=== PATIENT | male | born 1990 | race African-American/Black ===

== ENCOUNTER 2017-10-27 08:34 | Inpatient (IN) | payer MEDICAID ==
[~2017-10-27] VITALS: Ht 172.7 cm; Wt 63.5 kg
[2017-10-27] MEDS ORDERED: IV NORMAL SALINE 1000 ML BAG IV ONE ×2 (09:00→10:30)
[2017-10-27] MEDS ORDERED: KETOROLAC TROMETHAMINE 15 MG INJ IV ONE (09:00)
[2017-10-27] MEDS ORDERED: METOCLOPRAMIDE HCL 10 MG/2 ML VIAL IV ONE ×2 (09:00→12:45)
--- NOTE | 2017-10-27 09:00 | NUR ---
Dr. Sutton at bedside for MSE
--- NOTE | 2017-10-27 09:18 | NUR ---
PT out of ER for CT scan
--- NOTE | 2017-10-27 09:25 | NUR ---
PT back to ER from CT scan
[2017-10-27] MEDS ORDERED: METOCLOPRAMIDE HCL 10 MG/2 ML VIAL ONE ×2 (09:29→13:18)
[2017-10-27] MEDS ORDERED: KETOROLAC TROMETHAMINE 15 MG INJ ONE (09:29)
[2017-10-27 09:58] LABS: CREATININE 1.1 mg/dL (0.6-1.3); POTASSIUM 2.9 mmol/L (3.5-5.1)
[2017-10-27 10:04] LABS: BILIRUBIN,DIRECT 0.2 mg/dL (0.0-0.2); BILIRUBIN,TOTAL 0.9 mg/dL (0.2-1.0); TOTAL PROTEIN, SERUM 7.6 g/dL (6.4-8.2)
[2017-10-27 10:11] LABS: BASOPHILS % (AUTO) 0.1 % (0.0-2.0); EOSINOPHILS % (AUTO) 0.1 % (0.0-7.0); HEMATOCRIT 42.1 % (36.7-47.1); HEMOGLOBIN 14.7 g/dL (12.5-16.3); LYMPHOCYTES # (AUTO) 1.4 K/uL (20.0-40.0); LYMPHOCYTES % (AUTO) 22.1 % (20.5-51.5); MEAN CORPUSCULAR HGB CONC 35 g/dL (32.5-36.3); MONOCYTES # (AUTO) 0.6 K/uL (2.0-10.0); MONOCYTES % (AUTO) 9.9 % (0.0-11.0); NEUTROPHILS # (AUTO) 4.1 K/uL (1.8-8.9); NEUTROPHILS % (AUTO) 67.8 % (38.5-71.5); PLATELET COUNT (AUTO) 137 K/uL (152-348); RED BLOOD CELL COUNT(AUTO) 4.73 MIL/uL (4.06-5.63); WHITE BLOOD COUNT (AUTO) 6.1 K/uL (3.6-10.2)
[2017-10-27 10:19] LABS: *BLOOD, URINE Trace-intact (NEGATIVE); *CLARITY,URINE CLEAR (CLEAR); *COLOR,URINE YELLOW (YELLOW); *KETONES,URINE 4+ (NEGATIVE); *PROTEIN,URINE 2+ (NEGATIVE); *UROBILINOGEN,URINE 0.2 E.U./dl (NORMAL); LEUKOCYTE ESTERASE ,URINE NEGATIVE (NEGATIVE); NITRITE, URINE NEGATIVE (NEGATIVE); PH,URINE 6.5 (5.0-8.0); UGLUCOSE NEGATIVE (NEGATIVE)
[2017-10-27] MEDS ORDERED: POTASSIUM CHLORIDE 20 MEQ TAB.PRT.SR PO ONE (10:30)
[2017-10-27 10:44] LABS: *BILIRUBIN,URIN NEGATIVE (NEGATIVE)
[2017-10-27 10:53] LABS: BACTERIA,URINE FEW /HPF (NONE SEEN)
[2017-10-27 10:54] LABS: MUCUS,URINE MODERATE /LPF (0-FEW); SQUAMOUS EPITHELIAL CELL,UR FEW /HPF (NONE SEEN)
[2017-10-27] MEDS ORDERED: POTASSIUM CHLORIDE 20 MEQ TAB.PRT.SR ONE (10:58)
--- NOTE | 2017-10-27 11:00 | NUR ---
Sofiya dempsey in [facility] - 10/27/17 at 1354 by TOBI Patient started vomiting on the floor. Called EVS.
--- NOTE | 2017-10-27 11:00 | NUR ---
Patient started vomiting on the floor MD notified.
--- NOTE | 2017-10-27 11:52 | NUR ---
Patient vomitted again on the floor. Addendum: 10/27/17 at 1355 by TOBI Patient vomitted again. notified.
[2017-10-27] MEDS ORDERED: ONDANSETRON IV *ER 4 MG/2 ML VIAL IV ONE (12:00)
[2017-10-27] MEDS ORDERED: ONDANSETRON 4 MG/2 ML VIAL ONE (12:20)
--- NOTE | 2017-10-27 13:40 | NUR ---
PT ARRIVED IN A GURNEY, GRIMACING, C/O N/V. PT VOMITED 600CC. COOPERATIVE, SHAKING, CRYING. PT GIVEN PROTONIX ORDERED BY . PT TAUGHT BREATHING EXERCISES. PT FELL ASLEEP DURING ASSESSMENT.
[2017-10-27] MEDS ORDERED: MAGNESIUM HYDROXIDE 30 ML LIQUID UDC PO PRN (13:45)
[2017-10-27] MEDS ORDERED: ACETAMINOPHEN 325 MG TABLET PO PRN (13:45)
[2017-10-27] MEDS ORDERED: Z GUARD REMEDY PASTE 57 GM TUBE TOP PRN (13:45)
[2017-10-27 13:52] VITALS: BP 133/81
--- NOTE | 2017-10-27 13:54 | NUR ---
Sofiya dempsey in ED - 10/27/17 at 1354 by TOBI Patient started vomiting on the floor. notified.
[2017-10-27] MEDS: PANTOPRAZOLE SODIUM 40 MG VIAL IV SCH (14:06)
[2017-10-27] MEDS: IV NS 1000 ML 1,000 ML IV PRN (14:50)
[2017-10-27] MEDS: METOCLOPRAMIDE HCL 10 MG/2 ML VIAL IV PRN (15:56)
--- NOTE | 2017-10-27 16:20 | NUR ---
PT VOMITED 300CC, EMESIS LIQUID ORANGE IN COLOR. PT ON IV FLUIDS AND GIVEN REGLAN. PT IS RESTING IN BED. MEDICATION EFFECTIVE. CONTINUE TO MONITOR PT.
--- NOTE | 2017-10-27 18:53 | NUR ---
PT HAS BEEN INTERMITTENTLY VOMITING.PT GIVEN REGLAN. CAN NOT TOLERATE DRINKING WATER. HAS NS RUNNING AT 75CC/HR. PT RESTING IN BED. CONTINUE TO MONITOR PT. PT CALM, COOPERATIVE, NO SIGNS OF RESPIRATORY DISTRESS. CONTINUE TO MONITOR PT.
[2017-10-27] MEDS: ONDANSETRON 4 MG/2 ML VIAL IV PRN (19:29)
--- NOTE | 2017-10-27 19:30 | NUR ---
PT'S A/A/O X4 C/O NAUSEA AND VOMITING X1~100 ML W/GREENISH COLOR;ASSISTED PT FOR ORAL CARE AND GAVE ZOFRAN 4 MG IVP X1 TO PT ORDER;EDUCATED TO PT AND UPDATED THE PLAN OF CARE;PT VERBALIZED UNDERSTANDING AND COOPERATIVE NOTED.CONTINUED MONITORING TO PT.
[2017-10-27 20:00] VITALS: BP 136/86
[2017-10-27] MEDS: HYDROCODONE/APAP 10-325 MG TABLET PO PRN (20:05)
[2017-10-28] MEDS: METOCLOPRAMIDE HCL 10 MG/2 ML VIAL IV PRN ×2 (00:17→16:41)
[2017-10-28] MEDS: ONDANSETRON 4 MG/2 ML VIAL IV PRN ×3 (02:15→18:21)
[2017-10-28] MEDS: IV NS 1000 ML 1,000 ML IV PRN ×2 (03:25→22:42)
[2017-10-28 04:00] VITALS: BP 141/86
--- NOTE | 2017-10-28 06:00 | NUR ---
PT SLEPT ON/OFF IN THE SHIFT,ABLE TO TOLERATED WITH ONLY CLEAR LIQUID DIET.FOUND PT TOOK A LOT OF ICE CHIPS AND WILL VOMIT AFTER TOOK IT,MOST LIKELY I FOUND THE WATER'S CLEAR COLOR LOOK LIKE WATER FOR FEW TIMES NOTED.PT'S ABLE TO WALK TO BATHROOM FOR URINATION W/STEADY GAIT,DENIED OF DIZZINESS AND COOPERATIVE W/ASSISTANCE.MAINTAINED IVF MD'S ORDER.STABLE V/S RECORD NOTED.
--- NOTE | 2017-10-28 06:05 | NUR ---
PER TECHNICAL INSTRUCTOR COURSE DEVELOPER REPORT THAT PT REFUSED TO GET BLOOD TEST AT THIS TIME,STATED TO COME BACK LATER,SHE'LL BE BACK ~7-8 AM;WILL ENDORSE TO THE NEXT SHIFT NURSE TO FOLLOW UP NOTED.
[2017-10-28] MEDS: PANTOPRAZOLE SODIUM 40 MG VIAL IV SCH (06:24)
--- NOTE | 2017-10-28 07:00 | NUR ---
NO FRANCIS CATHETER NOTED. Addendum: 10/28/17 at 0907 by Gamal Sams LVN Amended: Links added.
[2017-10-28 08:50] LABS: EOSINOPHILS % (AUTO) 0.1 % (0.0-7.0); LYMPHOCYTES # (AUTO) 1.1 K/uL (20.0-40.0)
[2017-10-28 08:53] LABS: MAGNESIUM 1.7 mg/dL (1.8-2.4); PHOSPHOROUS 2.7 mg/dL (2.5-4.9)
[2017-10-28 09:01] LABS: THYROID STIMULATING HORMONE 0.949 mIU/mL (0.358-3.740)
[2017-10-28 09:04] LABS: BASOPHILS % (AUTO) 0.2 % (0.0-2.0); LYMPHOCYTES % (AUTO) 25.5 % (20.5-51.5); MEAN CORPUSCULAR HEMOGLOBIN 31.1 uug (23.8-33.4); MEAN CORPUSCULAR HGB CONC 35 g/dL (32.5-36.3); MONOCYTES # (AUTO) 0.6 K/uL (2.0-10.0); MONOCYTES % (AUTO) 13.2 % (0.0-11.0); NEUTROPHILS # (AUTO) 2.6 K/uL (1.8-8.9); PLATELET COUNT (AUTO) 151 K/uL (152-348); RED BLOOD CELL COUNT(AUTO) 4.18 MIL/uL (4.06-5.63)
[2017-10-28 09:05] LABS: WHITE BLOOD COUNT (AUTO) 4.3 K/uL (3.6-10.2)
[2017-10-28 09:06] LABS: HEMATOCRIT 37.6 % (36.7-47.1)
[2017-10-28 11:06] VITALS: BP 122/78
[2017-10-28] MEDS ORDERED: POTASSIUM CHLORIDE 20 MEQ TAB.PRT.SR PO ONE ×2 (14:00→18:00)
[2017-10-28 15:03] VITALS: BP 123/71
--- NOTE | 2017-10-28 15:18 | NUR ---
Per patient request, removed I.V. to right a.c. Patient did like the way the dressing for the iv site to right a.c. looked. Nurse attempted i.v to left f.a. x 1. patient tolerated i.v. attempt strat x 1.
--- NOTE | 2017-10-28 16:20 | NUR ---
Patient care was transferred to [place] at this point. Ask client to communicate all needs at this point, needs met. Client is in bed resting ans watching television, bed at lowest position for safety and call light within reach for assistance
[2017-10-28] MEDS: MAGNESIUM SULFATE/D5W 100 ML IV SCH ×2 (16:29→18:53)
[2017-10-28] MEDS: HYDROCODONE/APAP 5-325MG TABLET PO PRN (18:20)
--- NOTE | 2017-10-28 19:34 | NUR ---
All of clients needs were met. Client laying in bed awake, alert and oriented times 4. Magnesium up to date and potassium up to date, both given late due to client transfer of care. Client still states feeling nauseous. Pain medication given and antiemetics given as well. Bed is at lowest position for safety and call light within reach for safety
[2017-10-28 20:00] VITALS: BP 136/80
[2017-10-29] MEDS: ONDANSETRON 4 MG/2 ML VIAL IV PRN ×4 (04:54→21:45)
[2017-10-29 04:58] VITALS: BP 133/82
[2017-10-29] MEDS: METOCLOPRAMIDE HCL 10 MG/2 ML VIAL IV PRN (05:44)
[2017-10-29] MEDS: PANTOPRAZOLE SODIUM 40 MG VIAL IV SCH (05:45)
[2017-10-29] MEDS: HYDROCODONE/APAP 10-325 MG TABLET PO PRN (05:45)
--- NOTE | 2017-10-29 07:42 | NUR ---
Received client in bed asleep on her right side in a flat position. No apparent signs and symptoms of pain, distress, discomfort or SOB. Bed at lowest position for safety and call light near by for assistance.
--- NOTE | 2017-10-29 08:07 | NUR ---
While rounding this a.m. with financial management analyst RN noted patient to be decompensated behaviorally, more agitated, yelling out; "help me God/chay, take my hand, please help me." Call out to Dr. Quezada. Patient was medicated with prn for n/v symptoms. S/P anti emetic effective. Patient appears to be more calm but agitative state. Call light with in reach. patient noted to be semi-folwer's position with mittens on. Observed patient trying to remove mittens.
[2017-10-29] MEDS: HYDROCODONE/APAP 5-325MG TABLET PO PRN ×2 (09:40→15:20)
--- NOTE | 2017-10-29 11:10 | NUR ---
STOOL COLLECTED AND SENT TO LAB
[2017-10-29 11:39] VITALS: BP 144/86
[2017-10-29 13:03] LABS: *OCCULT BLOOD STOOL POSITIVE (NEGATIVE)
[2017-10-29] MEDS: IV NS 1000 ML 1,000 ML IV PRN (14:30)
[2017-10-29] MEDS ORDERED: POTASSIUM CHLORIDE 20 MEQ TAB.PRT.SR PO ONE ×2 (15:00→17:00)
[2017-10-29 15:26] VITALS: BP 133/83
--- NOTE | 2017-10-29 17:38 | NUR ---
CLIENT VOICES HER WISHES NOT TO HAVE A MALE NURSE
[2017-10-29 19:00] VITALS: BP 129/80
--- NOTE | 2017-10-29 19:45 | NUR ---
RECEIVED PATIENT AWAKE IN BED. A/O X4. DENIES PAIN OR DISCOMFORT. PATIENT VOMITED X2 AND C/O NAUSEA. PT AWARE ZOFRAN IS NOT DUE AT THIS TIME. VERBALIZED UNDERSTANDING. CALLED OUT TO DR. HOLLAND FOR FURTHER ORDERS. VSS. IVF INFUSING WELL. CALL LIGHT IN REACH. ALL NEEDS ATTENDED. WILL CONTINUE TO MONITOR.
--- NOTE | 2017-10-29 19:56 | NUR ---
ALL NEEDS MET THROUGHOUT THE DAY. ZOFRAN AND PAIN MEDICATION GIVEN NEEDED REQUESTED BY CLIENT. AMBULATORY. COMPLIANT WITH ALL NURSING CARE. NO APPARENT SIGNS ANS SYMPTOMS OF SOB, DISTRESS. SOME MILD ABDOMEN DISCOMFORT AND VOMITED TWICE DURING THE AM SHIFT. STOOL WAS COLLECTED WAITING ON RESULTS
[2017-10-29] MEDS ORDERED: LORAZEPAM 2 MG/1 ML VIAL IV PRN (21:00)
--- NOTE | 2017-10-29 21:00 | NUR ---
RECEIVED NEW ORDERS FROM DR. HOLLAND.
[2017-10-30] MEDS: IV NS 1000 ML 1,000 ML IV PRN (03:24)
[2017-10-30] MEDS: ONDANSETRON 4 MG/2 ML VIAL IV PRN (03:24)
[2017-10-30 04:00] VITALS: BP 148/91
[2017-10-30] MEDS: PANTOPRAZOLE SODIUM 40 MG VIAL IV SCH (06:38)
--- NOTE | 2017-10-30 06:53 | NUR ---
PATIENT ASLEEP IN BED. EASILY AROUSABLE. DENIES ANY PAIN OR NAUSEA AT THIS TIME. IVF INFUSING WELL. CALL LIGHT IN REACH. ALL NEEDS ATTENDED. WILL CONTINUE TO MONITOR AND ASSESS.
--- NOTE | 2017-10-30 07:45 | NUR ---
RECEIVED PATIENT ASLEEP AROUSES EASILY BUT PROMPTLY GOES BACK TO SLEEP SEEMS COMFORTABLE STATED FEELS SO TIRED AND WANTS TO SLEEP A LITTLE BIT LONGER MADE COMFORTABLE AND WILL CONTINUE TO OBSERVE.
--- NOTE | 2017-10-30 08:57 | NUR ---
PARKING STATION ATTENDANT HERE THE SECOND TIME AND PATIENT STATED THAT HE WANTS TO CONTINUE TO SLEEP STILL TOO TIRED AT THIS TIME.
--- NOTE | 2017-10-30 10:05 | NUR ---
PATIENT APPROACHED THE NURSES STATION AND STATED THAT HE WANTS TO LEAVE AGAINST MEDICAL ADVISE SO I PAGED DR CHURCH AND LEFT HIM A MESSAGE.
--- NOTE | 2017-10-30 10:15 | NUR ---
PATIENT IS AT THE ELEVATOR ON HIS WAY OUT AND I TOLD HIM TO WAIT SO THAT I VAN REMOVE HIS HEPLOCK IF HE IS LEAVING STATED THAT HE ALREADY REMOVED IT SO I INSPECTED HIS ARM AND THE HEPLOCK IS NOT THERE ANYMORE SO I GAVE HIM THE AGAINST MEDICAL ADVISE FORM AND HE SIGNED IT AND STATED THAT ITS NOTHING PERSONAL NEEDS TO GO HOME AND TAKE CARE OF HIS NIECES.ARM BAND REMOVED STATED WILL NOT WAIT FOR ANY PAPER WORK.
[2017-10-30 10:48] LABS: CREATININE 1.1 mg/dL (0.6-1.3); POTASSIUM 2.9 mmol/L (3.5-5.1)
== END 2017-10-30 10:15 | disposition left against medical advice (07) | DRG 254 ==
LOC: ER 08:34 → MED 13:26
PROVIDERS: ADMIT Internal Medicine; ATTEND Nurse Practitioner Acute Care
DX: K31.9 Disease of stomach and duodenum, unspecified (principal); D69.6 Thrombocytopenia, unspecified; K92.0 Hematemesis; E44.1 Mild protein-calorie malnutrition; E87.1 Hypo-osmolality and hyponatremia; E83.42 Hypomagnesemia; T40.7X5A Adverse effect of cannabis (derivatives), initial encounter; Y92.89 Other specified places as the place of occurrence of the external cause; E87.6 Hypokalemia; F64.9 Gender identity disorder, unspecified; Z79.890 Hormone replacement therapy; Z68.21 Body mass index [BMI] 21.0-21.9, adult; E86.0 Dehydration; R11.2 Nausea with vomiting, unspecified
CPT/HCPCS: 36415; 70030-TC; 71045; 83690; 83735; 84100; 84443; 85025; 85730; 93005; A4663; C9113; J1885; J2060; J2405; J2765; J3475; J7030